=== PATIENT | female | born 1965 | race Caucasian/White ===

== ENCOUNTER 2017-04-21 06:59 | Day surgery (SDC) | payer BC ==
[~2017-04-21 06:59] MED LIST: Midazolam 1 MG/ML 2 ML SDV ONE; Propofol 200 MG/20 ML SDV ONE; fentaNYL 100 MCG/2 ML SDV ONE
[2017-04-21] MEDS ORDERED: Dextrose 5%-Lactated Ringers 1,000 ML IV SCH (08:00)
[2017-04-21] MEDS ORDERED: Pantoprazole 40 MG Vial IVPUSH ONE (09:30)
[2017-04-21] MEDS ORDERED: Glycopyrrolate 0.2 MG/ML 2 ML SDV IVPUSH ONE (09:30)
--- NOTE | 2017-04-22 11:18 | OR ---
DATE OF PROCEDURE: 04/21/2017 PREOPERATIVE DIAGNOSIS: Dysphagia referable to distal esophagus. POSTOPERATIVE DIAGNOSES: Dysphagia referable to distal esophagus with: 1. Very mild esophageal inflammation without any stricturing or narrowing of esophagus or EG junction. 2. [id number] antral gastritis. OPERATIVE PROCEDURES: Esophagogastroduodenoscopy with: 1. Biopsies of antrum for CLOtest. 2. Biopsies of esophagogastric junction for histologic evaluation. INDICATION FOR PROCEDURE: This is a 51-year-old female presenting with some dysphagia referable to the distal esophagus. She does not report any history of reflux symptoms and was empirically started on omeprazole and has taken that for the past three days. The plan is to proceed with upper GI endoscopy with biopsies and/or dilation as indicated. Potential risks including bleeding and perforation were discussed, and the patient wishes to proceed. DETAILS OF PROCEDURE: The patient was taken to the operating room, placed in left lateral decubitus position. IV sedation was administered, after which the upper GI endoscope was passed orally through the length of the esophagus into the stomach with retroflexion view of the fundus, and thereafter through the pyloric channel and the proximal duodenum. The findings included normal hypopharynx, larynx, upper esophageal sphincter, and esophageal body. The EG junction was actually quite wide open with only perhaps minimal inflammation of the esophagogastric junction. No significant hiatal hernia was present, certainly there is nothing in the esophagus or EG junction area that would mechanically be causing dysphagia. Within the stomach, there was some [id number] redness in the antrum without erosions or ulcers. The pyloric channel and duodenum to the junction of the third and fourth portions were unremarkable. At this point, biopsies were obtained from the antrum and sent for CLOtest for H. pylori. Multiple biopsies were obtained from esophagogastric junction, to assess to what extent there is microscopic inflammation. No bleeding from the biopsy sites was seen and the procedure then concluded. PLAN: The patient certainly does not have any findings which would explain her dysphagia from a stricture or edema standpoint. We will plan to have her continue the omeprazole. We will see her back in one month for recheck. If the omeprazole does not result in any improvement of symptoms, she would perhaps be a candidate for esophageal motility study. uJan Fitch MD /[id number]
== END 2017-04-21 11:35 | disposition home or self-care (01) ==
LOC: JP.SDS 06:59
PROVIDERS: ATTEND Surgery
DX: K29.50 Unspecified chronic gastritis without bleeding (principal); J44.9 Chronic obstructive pulmonary disease, unspecified; I25.10 Atherosclerotic heart disease of native coronary artery without angina pectoris; I10 Essential (primary) hypertension; G47.33 Obstructive sleep apnea (adult) (pediatric); Z98.890 Other specified postprocedural states; Z88.8 Allergy status to other drugs, medicaments and biological substances
CPT/HCPCS: 43239; 87081; 88305; 93005; C9113; J2250; J2704; J3010; J7042; J3490

== ENCOUNTER 2020-10-24 06:53 | Day surgery (SDC) | payer BC ==
[2020-10-24] MEDS ORDERED: fentaNYL 100 MCG/2 ML SDV ONE (07:20)
[2020-10-24] MEDS ORDERED: Midazolam 1 MG/ML 2 ML SDV ONE (07:20)
[2020-10-24] MEDS ORDERED: Propofol 200 MG/20 ML SDV ONE (07:21)
[2020-10-24] MEDS ORDERED: Dextrose 5%-Lactated Ringers 1,000 ML IV SCH (08:15)
--- NOTE | 2020-11-09 14:33 | OR ---
DATE OF PROCEDURE: 10/24/2020 SURGEON: Juan Fitch MD PREOPERATIVE DIAGNOSIS: Indication for screening colonoscopy. POSTOPERATIVE DIAGNOSIS: Normal screening colonoscopy. OPERATIVE PROCEDURE: Screening colonoscopy. ANESTHESIA: IV sedation. INDICATIONS FOR PROCEDURE: A 54-year-old presenting for initial screening colonoscopy. She has no personal or family history of colonic neoplasia. Plan is to proceed with a colonoscopy with biopsies and/or polypectomy as indicated. Potential risks including bleeding and perforation were discussed, and the patient wishes to proceed. DETAILS OF PROCEDURE: The patient was taken to the operating room and placed in a left lateral decubitus position. IV sedation was administered, after which the initial digital rectal exam was performed and was unremarkable. Colonoscope was then passed into the rectum with retroflexion revealing uncomplicated hemorrhoidal columns. Scope was then passed to the level of the cecum. The prep was quite good. Only a small amount of liquid stool was present. To that level, no abnormalities were noted. Specifically, there were no diverticula. No areas of colitis. No polyps or other signs of neoplasia. The scope was then withdrawn, the above findings reconfirmed, and the procedure then concluded. Given the lack of personal or family history of colonic neoplasia, the next colonoscopy should be in roughly 10 years. Juan Fitch MD /[id number]
== END 2020-10-24 10:56 | disposition home or self-care (01) ==
LOC: JP.SDS 06:53
PROVIDERS: ATTEND Surgery
DX: Z12.11 Encounter for screening for malignant neoplasm of colon (principal); K64.9 Unspecified hemorrhoids; G47.33 Obstructive sleep apnea (adult) (pediatric)
CPT/HCPCS: 45378; J2250; J2704; J3010; J7121